=== PATIENT | male | born 1970 | race Caucasian/White ===

== ENCOUNTER 2021-09-29 23:25 | Emergency (ER) | payer BC, SELFPAY ==
--- NOTE | ~2021-09-29 | CT_ITS ---
EXAMINATION: NONCONTRAST HEAD CT NONCONTRAST CERVICAL SPINE CT INDICATION INFORMATION: Fall. EtOH. COMPARISON: None TECHNIQUE: Separate noncontrast CT examinations of the head and cervical spine were performed. Coronal and sagittal images were created for each examination at the technologist workstation. This CT examination was performed using dose optimization techniques as appropriate, variously including the following: *Automated exposure control *Adjustment of mA and/or kV according to patient size (this includes techniques or standardized protocols for targeted exams where dose is matched to indication/reason for exam; i.e. extremities or head) *Use of iterative reconstruction technique DLP: 1463 mGy-cm FINDINGS: Head: There is no evidence of acute intracranial hemorrhage or territorial infarction. No abnormal mass effect or midline shift is seen. [place] to white matter differentiation is well preserved. No extra-axial fluid collections are identified. No hydrocephalus. No significant volume loss. There is no abnormal attenuation within the brain parenchyma. No acute osseous or soft tissue abnormality. The mastoid air cells and visualized portions of the paranasal sinuses are well aerated. Cervical spine: There is anatomic alignment of the vertebral bodies and posterior elements. The atlantoaxial and atlantooccipital articulations are intact. Vertebral body heights are maintained. There is multilevel intervertebral disc space narrowing with endplate osteophyte formation and facet arthropathy. No evidence of acute fracture. No prevertebral soft tissue swelling. Visualized portions of the lung apices are unremarkable. The thyroid gland is unremarkable. CT/CT head/brain wo con IMPRESSION: 1. No acute intracranial finding. 2. No fracture or malalignment of the cervical spine. Mild degenerative change.
--- NOTE | ~2021-09-29 | CT_ITS ---
EXAMINATION: NONCONTRAST HEAD CT NONCONTRAST CERVICAL SPINE CT INDICATION INFORMATION: Fall. EtOH. COMPARISON: None TECHNIQUE: Separate noncontrast CT examinations of the head and cervical spine were performed. Coronal and sagittal images were created for each examination at the technologist workstation. This CT examination was performed using dose optimization techniques as appropriate, variously including the following: *Automated exposure control *Adjustment of mA and/or kV according to patient size (this includes techniques or standardized protocols for targeted exams where dose is matched to indication/reason for exam; i.e. extremities or head) *Use of iterative reconstruction technique DLP: 1463 mGy-cm FINDINGS: Head: There is no evidence of acute intracranial hemorrhage or territorial infarction. No abnormal mass effect or midline shift is seen. Easton to white matter differentiation is well preserved. No extra-axial fluid collections are identified. No hydrocephalus. No significant volume loss. There is no abnormal attenuation within the brain parenchyma. No acute osseous or soft tissue abnormality. The mastoid air cells and visualized portions of the paranasal sinuses are well aerated. Cervical spine: There is anatomic alignment of the vertebral bodies and posterior elements. The atlantoaxial and atlantooccipital articulations are intact. Vertebral body heights are maintained. There is multilevel intervertebral disc space narrowing with endplate osteophyte formation and facet arthropathy. No evidence of acute fracture. No prevertebral soft tissue swelling. Visualized portions of the lung apices are unremarkable. The thyroid gland is unremarkable. CT/CT cervical spine wo con IMPRESSION: 1. No acute intracranial finding. 2. No fracture or malalignment of the cervical spine. Mild degenerative change.
[2021-09-29 23:46] VITALS: BP 123/79; PULSE 67; RESP 18; TEMP 36.6; O2SAT 97; BMI 31.0
--- NOTE | 2021-09-30 00:46 | ED.FALL ---
HPI - Fall General Chief Complaint: Fall Stated Complaint: head lac Time Seen by Provider: 09/30/21 00:39 Source: patient Mode of arrival: ambulatory Limitations: no limitations History of Present Illness HPI Narrative: Patient comes to the emergency room complaining of a laceration to the back of the head. Patient states that he was drinking prior to arrival, patient was walking down the stairs, patient has dogs were running down the stairs as well and accidentally pushed him to the side, patient fell. Patient is not on any blood thinners, did not lose consciousness. Patient has no neck pain, no headache other than localized pain at the laceration site. Other injuries. Related Data Allergies Allergy/AdvReac Type Severity Reaction Status Date / Time No Known Allergies Allergy Unverified 11/04/19 14:52 Review of Systems Review of Systems: Constitutional : No Weight loss, No Fever, No Chills, No Night Sweats, No Fatigue, No Malaise ENT/Mouth : No Hearing loss, No Ear Pain, No Nasal Congestion, No Sinus Pain, No Hoarseness, No sore throat, No Rhinorrhea, No Swallowing Difficulty Eyes: No Eye Pain, No Swelling, No Redness, No Foreign Body, No Discharge, No Vision Changes Cardiovascular : No Chest Pain, No SOB, No Dyspnea on Exertion, No Orthopnea, No Edema, No Palpitations Respiratory : No Cough, No Sputum, No Wheezing, No Smoke Exposure, No Dyspnea Gastrointestinal : No Nausea, No Vomiting, No Diarrhea, No Constipation, No abdominal Pain, No Hematochezia, No Melena Genitourinary : no irregular bleeding, No Dysuria, No Urinary Frequency, No Hematuria, No Urinary Incontinence, No Urgency, No Flank Pain, No Urinary Flow Changes, No Hesitancy Musculoskeletal : No joint pain, No Myalgias, No Joint Swelling Skin : Laceration to the scalp Neuro : No Weakness, No Numbness, No Paresthesias, No Loss of Consciousness, No Dizziness, No Headache Psych : No Anxiety/Panic, No Depression, No SI/HI/AH/VH, No Social Issues, Heme/Lymph: No Bruising, No Bleeding,No Lymphadenopathy Endocrine : No Polyuria, No Polydipsia, No Temperature Intolerance PMFSH Social History Social History Advance Directives: No Advance Directives Information Provided: Yes Physical Exam Vital Signs: Vital Signs: Last Vital Signs Temp 97.9 F 09/29/21 23:46 Pulse 62 09/30/21 01:29 Resp 18 09/30/21 01:29 BP 115/68 09/30/21 01:29 Pulse Ox 98 09/30/21 01:29 O2 Del Method 09/30/21 01:29 BMI result Body Mass Index 31.0 Const: Other: Appearance: Alert. Oriented X3. No acute distress. Eyes: Pupils equal, round and reactive to light. ENT: Pharynx normal. Neck: Normal inspection. Neck supple. No lymph nodes noted. No crepitus CVS: Normal heart rate and rhythm. Pulses normal. Normal S1 and S2 Respiratory: No respiratory distress. Breath sounds normal. No Wheezing. No rales Abdomen: Soft and nontender. No rigidity. No distention. Skin: Skin warm and dry. Semicircular laceration to the scalp posteriorly, approximately 7 cm long Extremities: No lower extremity edema. No Lacerations. No Rash Neuro: Oriented X 3. No motor deficit. No sensory deficit. Moving all extremities. No slurred speech. CN 2 through 12 grossly intact Psych: calm, cooperative, normal affect Course Course Course Narrative: Head and cervical spine CT pending. Patient needed [address] and cervical spine CT showed no acute findings. Patient is clinically sober Procedures Laceration Laceration 1: Site: scalp Size (cm): 7 Description: linear and clean Depth: simple, single layer Local Anesthetic: lidocaine 2% and with epi Amount of anesthesia used (mL): 8 Skin layer closed with: other (Robin) Number of sutures: 9 MDM - Fall Imaging Data Head CT and cervical spine CT: Radiologist's impression: TECHNIQUE: Separate noncontrast CT examinations of the head and cervical spine were performed. Coronal and sagittal images were created for each examination at the technologist workstation. This CT examination was performed using dose optimization techniques as appropriate, variously including the following: *Automated exposure control *Adjustment of mA and/or kV according to patient size (this includes techniques or standardized protocols for targeted exams where dose is matched to indication/reason for exam; i.e. extremities or head) *Use of iterative reconstruction technique DLP: 1463 mGy-cm FINDINGS: Head: There is no evidence of acute intracranial hemorrhage or territorial infarction. No abnormal mass effect or midline shift is seen. Easton to white matter differentiation is well preserved. No extra-axial fluid collections are identified. No hydrocephalus. No significant volume loss. There is no abnormal attenuation within the brain parenchyma. No acute osseous or soft tissue abnormality. The mastoid air cells and visualized portions of the paranasal sinuses are well aerated. Cervical spine: There is anatomic alignment of the vertebral bodies and posterior elements. The atlantoaxial and atlantooccipital articulations are intact. Vertebral body heights are maintained. There is multilevel intervertebral disc space narrowing with endplate osteophyte formation and facet arthropathy. No evidence of acute fracture. No prevertebral soft tissue swelling. Visualized portions of the lung apices are unremarkable. The thyroid gland is unremarkable. CT/CT cervical spine wo con IMPRESSION: ? 1. No acute intracranial finding. 2. No fracture or malalignment of the cervical spine. Mild degenerative change. Discharge Plan Discharge Clinical Impression: Head injury, Laceration of scalp Patient Disposition: Home, Self-Care Instructions: Laceration (ED), Staple Care (ED) Additional Instructions: Your robin need to be removed in 7-10 days. Please follow-up with your primary care physician tomorrow. If you have any worsening or new symptoms, please return to the emergency room or call 911
[2021-09-30] MEDS: Lidocaine HCl 2%/Epi 1:100,000 20 ML VIAL INFILTRATI (01:23)
[2021-09-30 01:29] VITALS: BP 115/68; PULSE 62; RESP 18; O2SAT 98
== END 2021-09-30 02:28 | disposition home or self-care (01) ==
PROVIDERS: Emergency Provider Emergency Medicine; PCP Physician Assistant Medical
DX: S01.01XA Laceration without foreign body of scalp, initial encounter (principal); R51.9 Headache, unspecified; M54.2 Cervicalgia; F10.129 Alcohol abuse with intoxication, unspecified; W10.9XXA Fall (on) (from) unspecified stairs and steps, initial encounter; Y93.9 Activity, unspecified; Y92.009 Unspecified place in unspecified non-institutional (private) residence as the place of occurrence of the external cause; Y99.9 Unspecified external cause status; Y90.9 Presence of alcohol in blood, level not specified
CPT/HCPCS: 12002; 70450; 72125; 99284

== ENCOUNTER 2022-05-03 11:52 | Day surgery (SDC) | payer BC, SELFPAY ==
--- NOTE | 2022-05-02 13:24 | HO.ANESPROP2 ---
Documented by User: Aracely Toribio NP 05/02/22 13:25 HPI - Anesthesia Eval Consult details Narrative: 51yo M for Colonoscopy [facility] Surgical History Surgical History (Updated 05/02/22 @ 13:02 by Kacey Yee RN) H/O colonoscopy H/O shoulder surgery Social History Social History Patient Tobacco Use Status: Never used Tobacco Are you DNR?: No Advance Directives: No Advance Directives Information Provided: Yes Nutrition Risks: No Nutritional Risk Meds Allergies Allergy/AdvReac Type Severity Reaction Status Date / Time No Known Allergies Allergy Unverified 11/04/19 14:52 Home Medications Medication Instructions Recorded Confirmed Last Taken Type No Known Home Meds 05/02/22 05/02/22 Unknown History Exam Exam Date and Time: May 02, 20221323 Assessment and Plan Assessment Anesthesia Assessment: Chart Reviewed Documented by User: Holley Jordan MD 05/03/22 13:26 [facility] Family History Family history of problems with anesthesia: No Surgical History Surgical History (Updated 05/02/22 @ 13:02 by Kacey Yee RN) H/O colonoscopy H/O shoulder surgery History of Problems with Anesthesia: No Social History Social History Patient Tobacco Use Status: Never used Tobacco Are you DNR?: No Advance Directives: No Advance Directives Information Provided: Yes Nutrition Risks: No Nutritional Risk Meds Allergies Allergy/AdvReac Type Severity Reaction Status Date / Time No Known Allergies Allergy Unverified 11/04/19 14:52 Home Medications Medication Instructions Recorded Confirmed Last Taken Type No Known Home Meds 05/02/22 05/02/22 Unknown History Exam Airway Mallampati Class: II TM Dist: >3cm Neck ROM: Full Heart: rrr Lungs: cta Assessment and Plan Assessment Anesthesia Assessment: Anesthesia Plan Discussed Final Anesthetic Review Family History of Problems with Anesthesia: No History of Problems with Anesthesia: No NPO: Yes ASA Class: I Final Preanesthetic Review: No Changes in Pt Med Stat, Meds/Allgs Chart Reviewed and Consent Obtained/Reviewed Patient Risk: Intermediate Procedure Risk: Intermediate Anesthetic Plan Anesthetic Plan: MAC: Disposition: Standard PACU
[2022-05-03 07:56] VITALS: BMI 28.7
[2022-05-03 12:03] VITALS: BP 105/71; PULSE 78; RESP 18; TEMP 36; O2SAT 98
[2022-05-03] MEDS: Lactated Ringers 1,000 ML 100 ML IVCONT (12:14)
[2022-05-03 14:03] VITALS: BP 111/63; PULSE 74; RESP 16; TEMP 36.1; O2SAT 96
--- NOTE | 2022-05-03 14:08 | P.BOP_ITS ---
Brief Operative Note Date of Service: 05/03/22 Pre-op diagnosis: Screening Post-op diagnosis: other (Colon polyp) Procedure: Colonoscopy to the cecum and TI with cold snare polypectomy x 3 Surgeon: Wilver Chairez Anesthesia: MAC Was an [employer] used for this Procedure?: No Estimated blood loss (mL): 2.0 Pathology: other (A. Transverse colon polyp) Condition: stable Disposition: PACU
[2022-05-03 14:18] VITALS: BP 117/63; PULSE 74; RESP 16; TEMP 36.3; O2SAT 98
--- NOTE | 2022-05-04 01:41 | OP_ITS ---
SURGEON: Wilver Chairez MD PREOPERATIVE DIAGNOSIS: Colorectal cancer screening and family history of colon polyps. POSTOPERATIVE DIAGNOSIS: Colon polyp PROCEDURE PERFORMED: Colonoscopy to the cecum and terminal ileum with cold snare polypectomy x 1. ESTIMATED BLOOD LOSS: COMPLICATIONS: ANESTHESIA: Monitored anesthesia care. The patient was placed in left lateral decubitus position. The digital rectal exam revealed no abnormalities. The Olympus video pediatric colonoscope was entered into the rectum and advanced easily to the cecum. Once in the cecum, I did identify a normal-appearing cecal pouch with appendiceal orifice and a normal-appearing ileocecal valve. The terminal ileum was cannulated and appeared normal. The scope was withdrawn back in the colon. The entire cecum and ileocecal valve appeared normal. The scope was then slowly withdrawn assessing all mucosal surfaces carefully. Preparation was excellent. In the transverse colon was an approximately 5 mm polyp which was removed by cold snare polypectomy and recovered by suction. The polypectomy site appeared clean, without any sign of residual polyp nor bleeding. I did not visualize any other polyps, colitis nor angiodysplasia. There was a mild amount of sigmoid diverticulosis. In the rectum, the scope was retroflexed visualizing internal hemorrhoids, but no other pathology. The rectal mucosa appeared normal. The scope was straightened and withdrawn from the patient. He tolerated the procedure well and was returned to the recovery area in stable condition. IMPRESSION: 1. Small colon polyp. 2. Mild diverticulosis. 3. Internal hemorrhoids. PLAN: The results of the biopsy will be checked. I would recommend a repeat colonoscopy in 5 years for further surveillance. He was advised not to use any aspirin and NSAIDs for 1 week. He would otherwise see me on a p.r.n. basis MD CAROLYN Kruger/DON / [phone] ELVIN
== END 2022-05-03 14:38 | disposition home or self-care (01) ==
PROVIDERS: PCP Physician Assistant Medical; Visit Provider Internal Medicine
PROC: 0DJD8ZZ Inspection of Lower Intestinal Tract, Via Natural or Artificial Opening Endoscopic (ICD-10-PCS; CPT 45378; principal; 2022-05-03 13:00)
DX: Z12.11 Encounter for screening for malignant neoplasm of colon (principal); Z83.71 Family history of colonic polyps; K63.5 Polyp of colon; K57.30 Diverticulosis of large intestine without perforation or abscess without bleeding; K64.8 Other hemorrhoids
CPT/HCPCS: 45385; 88305

== ENCOUNTER 2023-06-19 11:58 | Emergency (ER) | payer BC, SELFPAY ==
--- NOTE | ~2023-06-19 | XR_ITS ---
EXAMINATION: XR HAND, RIGHT CLINICAL INFORMATION: Dog bite to thumb. COMPARISON: None available. TECHNIQUE: PA, lateral, and oblique views of the right hand. FINDINGS: Alignment is anatomic. Joint spaces are maintained. There is soft tissue swelling at the thenar eminence. No displaced fracture. No bony erosions or soft tissue calcifications. XR/XR hand RT min 3V IMPRESSION: Soft tissue swelling at the thenar eminence.
[2023-06-19 12:17] VITALS: BP 114/72; PULSE 77; RESP 18; TEMP 37.1; O2SAT 99; BMI 29.2
--- NOTE | 2023-06-19 12:18 | ED.EXTPRO ---
HPI - Extremity Problem General Chief complaint: Animal Bite Stated complaint: R hand swollen Time Seen by Provider: 06/19/23 12:39 Source: patient Mode of arrival: ambulatory Limitations: no limitations History of Present Illness HPI Narrative: Patient is a 53-year-old left-hand dominant male presenting to the emergency department with complaint of right thumb pain and swelling after a dog bite on Friday night. States that he was walking his dog in [place] when a stray dog ran up and began attacking his dog. States that in an attempt to break up the fight, was bit on his right hand by the stray dog. States that the dog ran away after the incident. He does not have any additional information about the dog and the dog is not available for quarantine or observation. Unsure last tetanus. Denies any discharge or drainage from the puncture wounds. Denies decreased ROM. MD Complaint: extremity pain and extremity swelling Onset (ago): day(s) Location: right and upper extremity Quality: aching Radiation: none Associated symptoms: denies other symptoms Related Data Previous Rx's ?Medication ?Instructions ?Recorded amoxicillin 875 mg-potassium 1 tab PO BID 10 days #20 tabs 06/19/23 clavulanate 125 mg tablet Allergies Allergy/AdvReac Type Severity Reaction Status Date / Time No Known Allergies Allergy Unverified 06/19/23 12:19 Review of Systems Review of Systems: As per HPI. Yes all other systems are reviewed and are negative Constitutional: Constitutional: Reports as per HPI [facility] Past Medical History Surgical History (Updated 05/02/22 @ 13:02 by Kacey Yee RN) H/O shoulder surgery H/O colonoscopy Social History Social History Patient Tobacco Use Status: Never used Tobacco Advance Directives: No Advance Directives Information Provided: Yes Physical Exam Vital Signs: Vital Signs: Last Vital Signs Temp 98.8 F 06/19/23 12:17 Pulse 77 06/19/23 12:17 Resp 18 06/19/23 12:17 BP 114/72 06/19/23 12:17 Pulse Ox 99 06/19/23 12:17 O2 Del Method Room Air 06/19/23 12:17 BMI result Body Mass Index 29.2 Vital signs have been reviewed and appear to be correct. Blood pressure normal. Heart rate normal. Respiratory rate normal. Temperature normal. Oxygen saturation normal. Const: General: cooperative, healthy appearing and no acute distress Orientation/consciousness: oriented to person, oriented to place, oriented to time and patient oriented x3 Limitations: no limitations HEENT: Head: Yes normocephalic and Yes atraumatic Ears: external ears normal General nose exam: Normal external nose present Face and sinus: Yes face symmetric Mouth: oropharynx normal and moist mucous membranes Throat: Yes uvula midline Eyes: Pupils: Equal, round and reactive pupils present Neck: Neck: Yes normal visual inspection and Yes supple Resp: Effort & Inspection: normal respiratory effort and able to speak in complete sentences Auscultation: clear to auscultation bilaterally Cardio: Rate: regular rate Rhythm: regular rhythm Heart sounds: S1 normal heart sound present and S2 normal heart sound present GI: Palpation (GI): Soft to palpation and nontender Auscultation: normoactive bowel sounds : General: Yes no CVA tenderness Back/Spine/Pelvis: Back: no CVA tenderness Skin: General skin exam: elasticity normal and turgor normal Neuro: General: oriented to person, oriented to place, oriented to time, patient oriented x3, tone normal, moves all extremities, Normal light touch and pain sensation, no focal motor deficits, CN's II-XI intact bilaterally and deep tendon reflexes 2+ bilaterally Cranial nerves: Yes Equal, round and reactive pupils present Cognition (Neuro): normal cognition Extrem: General: Yes full ROM, Yes no pedal edema and Yes no calf tenderness Right upper extremity: Extremity exam: right hand Details: normal capillary refill, neuromotor exam normal, neurosensory exam normal, tendon exam normal, normal ROM of fingers, warmth Location: of the thumb Location: at the MCP joint, swelling Location: of the thumb Location: at the MCP joint and at the proximal phalanx and puncture wound (x2 over MCP joint thumb, one with scant amt purulent dng) Psych: Mental Status: mental status grossly normal Affect: normal affect Thought process: Normal thought process present Course Course Course Narrative: This is a rapid medical exam completed by Barb HARRIS: Additional HPI, ROS, PE not included below will be deferred to primary provider. Complaints of right hand swelling. Reports that he was walking his dog on Friday night and another dog bit him. Unknown dog. Denies purulent discharge, fevers, chills, lymphagitis Medications Administered Discontinued Medications Generic Name Dose Route Start Last Admin Trade Name Alexq PRN Reason Stop Dose Admin Amoxicillin/Clavulanate Potassium 875 mg 06/19/23 12:53 06/19/23 13:20 Amoxicillin/Potassium Clav 875 Mg Tablet PO 06/19/23 12:54 875 mg ONCE ONE Administration Diphtheria/Tetanus/Acell Pertussis 0.5 ml 06/19/23 12:45 06/19/23 13:22 Diphth,Pertus(Acell),Tet Adult 0.5 Ml Syringe IM 06/19/23 12:46 0.5 ml .ONCE ONE Administration Rabies Immune Globulin 1,846 unit 06/19/23 12:45 06/19/23 13:22 Rabies Immune Globulin/Pf 900 Unit/3 Ml Vial 20 unit/kg (1846 unit) 06/19/23 12:46 1,846 unit IM Administration ONCE ONE Rabies Vaccine Human Diploid Cell 1 ml 06/19/23 12:45 06/19/23 13:21 Rabies Vaccine, Human Diploid (Imovax) 1 Ml Vial IM 06/19/23 12:46 1 ml .ONCE ONE Administration Medical Decision Making Medical Decision Making [facility] Narrative: Patient is a 53-year-old left-hand dominant male presenting to the emergency department with complaint of right thumb pain and swelling after a dog bite on Friday night. On exam patient is awake, A+Ox3, VS WNL, afebrile, normal neurological exam without focal deficits, physical exam findings as above. Given reported symptoms and physical exam findings, initial differential includes dog bite, cellulitis. Do not suspect tenosynovitis at this time. Tdap updated at today's visit. Rabies vaccine and immunoglobulin given as well as first dose of Augmentin. X-ray notable for soft tissue swelling at thenar eminence but no evidence of fracture. My interpretation is in agreement with the radiologist's interpretation. Mandatory reporting forms completed by RN. Additional rabies vaccines ordered for short stay. Return precautions discussed at bedside. Will treat patient with course of Augmentin, 1st dose given in the ED. Instructed patient to follow up with PCP as well. Patient verbalized understanding of and agreement with plan. Differential Diagnosis Differential Diagnoses: The differential diagnosis associated with the presentation includes As per MDM Independent Interpretation I performed an independent interpretation of an: Plain X-Ray Interpretation: Soft tissue swelling at the thenar eminence of right hand, no acute fracture. Radiology Impression Discussion of test interpretation with radiology: I have reviewed the radiologist's reading. Radiologist Impression: XR/XR hand RT min 3V IMPRESSION: Soft tissue swelling at the thenar eminence. External Record Review External record reviewed: Inpatient record, Office record and Outpatient record Prescription Management I considered prescription management with: Antibiotic and Other Discharge Plan Discharge Clinical Impression: Dog bite of right hand Patient Disposition: Home, Self-Care Instructions: Animal Bite (ED), Rabies (ED) Additional Instructions: You were evaluated in the emergency department today for an animal bite. Please keep the area surrounding the wound clean and dry and assess the area daily for signs of infection. You were prescribed antibiotics today, please take the antibiotics prescribed to you in full, as directed. You should assess the wound on your right hand daily and return if you develop increased swelling, redness, warmth, redness streaking up your arm, increased thick yellow drainage, fever 100.4? F or greater or any other concerning symptoms. Please follow-up with your primary care physician within 2 days. You were given a rabies vaccine in the emergency department today and will need additional doses which have been ordered for you at [facility]. You should be contacted by them to set up a time, if you have not heard from them by 5/ please call the number provided. Return to the emergency department if you experience worsening or uncontrolled pain, spreading redness, fevers 100.4? F or greater, pus from your bite, or for any other concerning symptoms. Prescriptions: New amoxicillin-pot clavulanate 875-125 mg tablet 1 tab PO BID 10 Days Qty: 20 0RF Stand Alone Forms: Work/School Release Print Language: [place]
[2023-06-19] MEDS: Amoxicillin/Potassium Clav 875 MG TABLET PO (13:20)
[2023-06-19] MEDS: Rabies Vaccine, Human Diploid (Imovax) 1 ML VIAL IM (13:21)
[2023-06-19] MEDS: Diphth,Pertus(ACell),Tet Adult 0.5 ML SYRINGE IM (13:22)
[2023-06-19] MEDS: Rabies Immune Globulin/PF 900 UNIT/3 ML VIAL 1846 UNIT IM (13:22)
== END 2023-06-19 13:50 | disposition home or self-care (01) ==
PROVIDERS: Emergency Provider Emergency Medicine; PCP Physician Assistant Medical
DX: S61.051A Open bite of right thumb without damage to nail, initial encounter (principal); M79.641 Pain in right hand; W54.0XXA Bitten by dog, initial encounter; Y93.9 Activity, unspecified; Y92.480 Sidewalk as the place of occurrence of the external cause; Y99.8 Other external cause status; Z29.14 Encounter for prophylactic rabies immune globulin; Z20.3 Contact with and (suspected) exposure to rabies; Z23 Encounter for immunization
CPT/HCPCS: 73130; 90375; 90471; 90472; 90675; 90715; 96372; 99281; 99284